=== PATIENT | female | born 2000 | race Caucasian/White ===

== ENCOUNTER 2021-09-10 12:52 | Emergency (ER) | payer BC, SELFPAY ==
[~2021-09-10] VITALS: Ht 154.9 cm; Wt 104.5 kg
[2021-09-10 12:53] VITALS: BP 115/75
[2021-09-10] MEDS ORDERED: VENTAER INH (13:17)
[2021-09-10] MEDS ORDERED: AMOX875T2 PO (15:29)
== END 2021-09-10 15:38 | disposition home or self-care (01) ==
LOC: M ED 12:52
DX: H66.93 Otitis media, unspecified, bilateral (principal); F17.200 Nicotine dependence, unspecified, uncomplicated; Z88.2 Allergy status to sulfonamides

== ENCOUNTER 2021-09-20 00:55 | Emergency (ER) | payer SELFPAY ==
[~2021-09-20] VITALS: Ht 154.9 cm; Wt 98.7 kg
[~2021-09-20 00:55] MED LIST: AMOX875T2 PO; VENTAER INH
[2021-09-20] MEDS ORDERED: CLAR10CA3 PO (01:05)
[2021-09-20] MEDS ORDERED: ACET-683 PO (01:05)
[2021-09-20 05:51] VITALS: BP 136/88
== END 2021-09-20 06:23 | disposition left against medical advice (07) ==
LOC: M ED 00:55
DX: Z53.21 Procedure and treatment not carried out due to patient leaving prior to being seen by health care provider (principal)